=== PATIENT | female | born 2000 | race Caucasian/White ===

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

== ENCOUNTER 2021-08-14 11:59 | Inpatient (IN) ==
[2021-08-14] MEDS ORDERED: Albuterol HFA INHALER 8 gm MDI INH PRN (13:05)
[2021-08-14 13:56] LABS: Urine Benzodiazepine Screen None Detected (None Detect); Urine Cannabinoids Screen None Detected (None Detect); Urine Opiates Screen None Detected (None Detect)
[2021-08-15] MEDS ORDERED: Dinoprostone 10 MG VAG.SUPP VAGINAL ONE (10:22)
[2021-08-15] MEDS ORDERED: Lidocaine 2% JELLY 6 ML TOPICAL ONE (19:50)
[2021-08-16] MEDS ORDERED: Nalbuphine 10 MG/ML 1 ML VIAL IV ONE (03:02)
[2021-08-16] MEDS ORDERED: Promethazine INJ(RESTRICTED) 25 MG/ML 1 ml VIAL IV ONE (03:02)
[2021-08-16 03:10] LABS: ABS Basophils 0.1 10^3/ul (0-0.2); ABS Eosinophils 0.1 10^3/ul (0-0.6); ABS Lymphocytes 1.7 10^3/ul (1.0-4.8); ABS Monocytes 1.2 10^3/ul (0-0.8); ABS Neutrophils 18.8 10^3/ul (1.5-7.7); Eosinophil % 0.3 %; Hematocrit 37 % (35-47); Hemoglobin 12.1 g/dL (12.0-16.0); Lymphocyte % 7.7 %; Mean Corpuscular HGB Conc 33 g/dL (31-36); Mean Corpuscular Hemoglobin 27 pg (27-31); Mean Corpuscular Volume 82 fL (80-97); Mean Platelet Volume 10.2 fL (7.4-10.4); Nucleated Red Blood Cells % 0.1; Platelet Count 305 10^3/uL (150-450); Red Blood Count 4.52 10^6 /uL (3.70-4.87); Red Cell Distribution Width 15 % (10-15); White Blood Count 21.9 10^3/uL (3.5-10.8)
[2021-08-16] MEDS ORDERED: Oxytocin in LR 20 UNITS/1,000 ML BAG IVPB ONE (06:00)
[2021-08-16] MEDS ORDERED: fentaNYL 100 mcg/2 ml 50 MCG/ML VIAL ONE (06:26)
[2021-08-16] MEDS ORDERED: fentaNYL 100 mcg/2 ml 50 MCG/ML VIAL IV SLOW PU PRN (06:28)
[2021-08-16] MEDS ORDERED: fentaNYL 100 mcg/2 ml 50 MCG/ML VIAL IV SLOW PU ONE (06:30)
[2021-08-16] MEDS ORDERED: Glycerin ADULT 2.4 gm SUPP PR PRN (06:53)
[2021-08-16] MEDS ORDERED: Witch Hazel PAD JAR TOPICAL PRN (06:53)
[2021-08-16] MEDS ORDERED: Dibucaine 1% OINT 28.35 GM TUBE PR PRN (06:53)
[2021-08-16] MEDS ORDERED: RHO D Immune Globulin (HUMAN) 300 MCG = 1,500 I.U. INJ IM PRN (06:53)
[2021-08-16] MEDS ORDERED: Oxytocin in LR 20 UNITS/1,000 ML BAG IVPB SCH (07:00)
[2021-08-16] MEDS ORDERED: Lactated Ringers 1000 ml BAG 1,000 ML IV SCH (07:00)
[2021-08-16] MEDS ORDERED: Lidocaine 1% w EPI 1:200,000 SDV 30 ML VIAL ONE (12:43)
[2021-08-16] MEDS ORDERED: Lidocaine 1% MPF 5 ML VIAL ONE (12:46)
[2021-08-17 08:35] LABS: ABS Basophils 0.1 10^3/ul (0-0.2); ABS Eosinophils 0.2 10^3/ul (0-0.6); ABS Monocytes 1.3 10^3/ul (0-0.8); ABS Neutrophils 11.1 10^3/ul (1.5-7.7); Eosinophil % 1.3 %; Hematocrit 33 % (35-47); Hemoglobin 10.9 g/dL (12.0-16.0); Mean Corpuscular HGB Conc 33 g/dL (31-36); Mean Corpuscular Hemoglobin 27 pg (27-31); Mean Corpuscular Volume 83 fL (80-97); Mean Platelet Volume 9.2 fL (7.4-10.4); Platelet Count 253 10^3/uL (150-450); Red Blood Count 4.02 10^6 /uL (3.70-4.87); Red Cell Distribution Width 15 % (10-15); White Blood Count 15.6 10^3/uL (3.5-10.8)
[2021-08-17 15:17] VITALS: BP 121/65
== END 2021-08-17 21:00 | disposition home or self-care (01) | DRG 560 ==
LOC: MCHOBOUT 11:59 → MCHOB 12:35
PROVIDERS: ADMIT Midwife; ATTEND Midwife

== ENCOUNTER 2023-10-02 09:55 | Observation (INO) ==
[2023-10-02] MEDS: Lactated Ringers 1000 ml BAG 1,000 ML IV ONE ×2 (10:29)
[2023-10-02 10:36] LABS: ABS Basophils 0.1 10^3/uL (0.0-0.1); ABS Eosinophils 0.6 10^3/uL (0.0-0.5); ABS Lymphocytes 2.2 10^3/uL (1.0-4.8); ABS Monocytes 0.7 10^3/uL (0.0-0.9); ABS Neutrophils 10.4 10^3/uL (1.5-7.6); ABS Nucleated RBC 0.01 10^3/ul; Hematocrit 40.1 % (35-45); Hemoglobin 13.4 g/dL (11.5-14.3); Lymphocyte % 15.5 %; Mean Corpuscular Hemoglobin 28.3 pg (27-33); Mean Corpuscular Hgb Conc 33.4 g/dL (31-36); Mean Corpuscular Volume 84.8 fL (80-97); Mean Platelet Volume 8.7 fL (7.5-11.2); Nucleated Red Blood Cells % 0.1 %/100WBC (0.0-0.8); Platelet Count 332 10^3/uL (150-450); Red Blood Count 4.73 10^6/uL (3.63-4.92); Red Cell Distribution Width 12.9 % (12-17)
[2023-10-02 10:59] LABS: High Sens Troponin Baseline < 3 pg/mL (<15)
[2023-10-02 11:12] LABS: INR 1.09 (0.83-1.13)
[2023-10-02 11:30] LABS: HCG Pregnancy < 0.60 mIU/mL
[2023-10-02 11:47] LABS: ALT 27 U/L (7-52); Albumin 4.7 g/dL (3.2-5.2); Albumin/Globulin Ratio 1.7 (1-3); Alkaline Phosphatase 101 U/L (35-149); Anion Gap 9 mmol/L (2-16); Blood Urea Nitrogen 11 mg/dL (6-24); CO2 Carbon Dioxide 24 mmol/L (22-32); Chloride 101 mmol/L (101-111); Creatinine, Serum 0.63 mg/dL (0.51-0.95); Globulin 2.8 g/dL (2-4); Glucose 123 mg/dL (70-100); Sodium 134 mmol/L (135-145); Total Bilirubin 0.8 mg/dL (0.2-1.0); Total Protein 7.5 g/dL (6.4-8.9); eGFR CKD-EPI 127.8 (>60)
[2023-10-02 12:06] LABS: C Reactive Protein 2.27 mg/L (<8.01); Magnesium 1.7 mg/dL (1.9-2.7)
[2023-10-02 12:06] LABS: High Sensitivity Troponin 1 Hr < 3 pg/mL (<15)
[2023-10-02 12:06] LABS: Urine Appearance Turbid; Urine Bilirubin Negative (Negative); Urine Blood 3+ (Negative); Urine Glucose Negative (Negative); Urine Ketones Negative (Negative); Urine Nitrite Negative (Negative); Urine Protein 1+ (>=30 mg/dL) (Negative); Urine Specific Gravity 1.021 (1.002-1.030); Urine Urobilinogen Negative (Negative); Urine pH 6.5 (5.0-8.0)
[2023-10-02 12:21] LABS: Urine Bacteria Absent /HPF (Absent); Urine Red Blood Cell 3+(>10/hpf) /HPF (0-Trace); Urine Squamous Epithelial Cell Present /HPF (Absent); Urine White Blood Cell 1+(6-10/hpf) /HPF (0-Trace)
[2023-10-02 12:24] LABS: Urine Color Light-Yellow
[2023-10-02] MEDS: cefTRIAXone 2 gm/50 mL D5W 2 GM/50 ML BAG IV ONE (13:39)
[2023-10-02] MEDS: Ondansetron 4 mg VIAL 2 MG/ML 2 ml VIAL IV ONE (14:16)
[2023-10-02] MEDS ORDERED: Buffered Lidocaine 1% SYRIN 1 ml INTRADERM ONE (14:35)
[2023-10-02] MEDS ORDERED: fentaNYL 100 mcg/2 ml 50 MCG/ML VIAL IV PRN (14:36)
[2023-10-02] MEDS ORDERED: Metoclopramide 5 MG/ML VIAL (10 mg) IV PRN (14:36)
[2023-10-02] MEDS ORDERED: Naloxone 0.4 mg VIAL 0.4 mg/ml 1 ml VIAL IV PRN ×2 (14:36)
[2023-10-02] MEDS ORDERED: HYDROmorphone 1 MG/1 ML SYRINGE IV PRN (15:01)
[2023-10-02] MEDS ORDERED: Ondansetron 4 mg VIAL 2 MG/ML 2 ml VIAL IV PRN (15:03)
[2023-10-02] MEDS ORDERED: Prochlorperazine 5 mg/ml 2 ml VIAL (10 mg) IV PRN (15:03)
[2023-10-02] MEDS: HYDROmorphone 0.5 MG/0.5 ML SYRINGE IV PRN (15:12)
[2023-10-02] MEDS ORDERED: Albuterol HFA INHALER 8 gm MDI INH PRN (15:45)
[2023-10-02] MEDS: Ondansetron 4 mg VIAL 2 MG/ML 2 ml VIAL IV PRN (19:04)
[2023-10-02] MEDS: Lactated Ringers 1000 ml BAG 1,000 ML IV SCH (23:27)
[2023-10-03] MEDS: NORGESTIMATE ETHINYL ESTRADIOL PO SCH (09:33)
[2023-10-03] MEDS ORDERED: Buffered Lidocaine 1% SYRIN 1 ml ONE (10:52)
[2023-10-03] MEDS ORDERED: fentaNYL 100 mcg/2 ml 50 MCG/ML VIAL IV ONE (12:41)
[2023-10-03] MEDS ORDERED: Midazolam 2 mg/2 ml VIAL 1 mg/ml 2 ml VIAL (2 mg) IV SLOW PU ONE ×2 (12:41→13:08)
[2023-10-03] MEDS ORDERED: Lidocaine 2% PF 5 ML VIAL INJ ONE ×2 (12:41→13:11)
[2023-10-03] MEDS ORDERED: Dexamethasone IV 4 MG/ML VIAL 1 ml VIAL IV SLOW PU ONE ×2 (12:41→14:11)
[2023-10-03] MEDS ORDERED: Ondansetron 4 mg VIAL 2 MG/ML 2 ml VIAL IV ONE ×2 (12:41→14:11)
[2023-10-03] MEDS ORDERED: cefTRIAXone 2 gm/50 mL D5W 2 GM/50 ML BAG IV SCH (13:00)
[2023-10-03] MEDS ORDERED: fentaNYL 250 mcg/5 ml 50 MCG/ML 5 ml VIAL (250 MCG) IV ONE (13:08)
[2023-10-03] MEDS ORDERED: Rocuronium 50 mg VIAL 10 mg/ml 5 ml VIAL (50 mg) IV ONE (13:08)
[2023-10-03] MEDS ORDERED: Propofol 10 MG/ML 20 ML BTL IV ONE (13:12)
[2023-10-03] MEDS ORDERED: Lidocaine 2% JELLY 10 ML JELLY TOPICAL ONE (14:07)
[2023-10-03] MEDS ORDERED: ceFAZolin VIAL VIAL IVPB ONE (14:09)
[2023-10-03] MEDS ORDERED: Acetaminophen IV 1 GM/100ML 1,000 MG/100 ML BAG IV ONE (14:34)
[2023-10-03] MEDS ORDERED: Scopolamine 1 mg/72hr PATCH ONE (14:55)
[2023-10-03] MEDS ORDERED: Ondansetron 4 mg VIAL 2 MG/ML 2 ml VIAL ONE (14:55)
[2023-10-03] MEDS: Ondansetron 4 mg VIAL 2 MG/ML 2 ml VIAL IV PRN (14:56)
[2023-10-03] MEDS: Scopolamine 1 mg/72hr PATCH TRANSDERM ONE (15:11)
[2023-10-03] MEDS ORDERED: Metoclopramide 5 MG/ML VIAL (10 mg) ONE (15:17)
[2023-10-03 16:16] VITALS: BP 128/95
== END 2023-10-03 16:48 | disposition home or self-care (01) ==
LOC: EDHOLD 09:55 → ED 09:55 → SUATTDRO 15:09 → MEDTELE 16:09
PROVIDERS: ADMIT Internal Medicine; ATTEND Internal Medicine